=== PATIENT | female | born 1985 | race African-American/Black ===

== ENCOUNTER 2024-06-11 04:40 | Emergency (ER) | payer OTHER, SELFPAY ==
[2024-06-11 04:41] VITALS: BP 116/80
[2024-06-11] MEDS: REMERON 7.5 MG PO (05:09)
--- NOTE | 2024-06-11 05:52 | ED.GENMED ---
History of Present Illness
<DO Stormy Peoples Last Filed: 06/11/24 06:49>
General
Chief Complaint: Anxiety
Source: patient and ambulance crew
Exam Limitations: clinical condition
Time Seen by Provider: 06/11/24 04:43
History of Present Illness
History of Present Illness:
38-year-old female presents stating she is having a panic attack. She reports she is 12 weeks . Patient states that she typically takes mirtazapine when this happens but she did not have any. She was at work. She presents with persistent
nausea and dry heaves. She states is from her anxiety. No abdominal pain or fevers. She reports allergies to Reglan and Zofran. She also has allergies to Compazine and Phenergan. She has had this many times in the past she reports. Patient is
loudly dry heaving and yelling on arrival. She denies drug use. She denies alcohol use.
Past History
<DO Stormy Peoples Last Filed: 06/11/24 06:49>
Past History
ED Past Medical History: Other (Anxiety, panic disorder)
Social History
Drug: None
Phy Exam
<DO Stormy Peoples Last Filed: 06/11/24 06:49>
Physical Exam
Physical Exam:
CONSTITUTIONAL Patient alert and oriented to person, place and time. Patient yelling and loudly dry heaving. Taking her close off during exam. Vital signs reviewed.
HEAD atraumatic, normocephalic.
EYES eyelids normal to inspection, Pupils equally round and reactive to light, Extraocular muscles intact, Conjunctiva normal, Sclera normal.
NECK normal range of motion, Trachea midline, no jugular venous distention.
RESPIRATORY CHEST No respiratory distress noted, Chest expansion equal,
ABDOMEN abdomen nontender, Bowel sounds normal. No distention.
BACK normal inspection, no obvious deformities
UPPER EXTREMITY range of motion normal, Motor strength normal, no cyanosis, no edema.
LOWER EXTREMITY range of motion normal, Motor strength normal, no cyanosis, no edema.
NEURO Speech normal, No focal motor deficits, [place] coma scale 15, Memory normal, Cranial Nerves intact to screening exam.
SKIN skin warm, dry, and normal in color.
PSYCHIATRIC patient oriented to person place and time, extremely anxious and yelling.
Course
<Gilberto Anderson, DO - Last Filed: 06/11/24 06:49>
Orders/Labs/Results
Orders:
Orders
06/11/24 05:04
Mirtazapine [Remeron] 7.5 mg PO NOW STA
06/11/24 05:13
Mirtazapine Odt [Remeron Odt] 7.5 mg PO NOW STA
06/11/24 05:48
0.9% Sodium Chloride 1000 ml [Nss] 1,000 ml IV BOLUS
06/11/24 05:49
Lorazepam [Ativan] 2 mg .ROUTE .STK-MED ONE
06/11/24 05:50
Lorazepam [Ativan] 1 mg IV NOW STA
06/11/24 06:07
Lorazepam [Ativan] 1 mg IV NOW STA
06/11/24 06:30
Test Result ONCE
06/11/24 08:28
Trimethobenzamide [Tigan] 200 mg IM NOW STA
06/11/24 11:02
Lorazepam [Ativan] 1 mg IV NOW STA
06/11/24 11:51
PSYCHIATRY CONSULT Urgent
Consulting Provider: Aidan Cano
Was physician already notified: Yes
Reason for consult: anxiety
06/11/24 11:58
Test Result ONCE
06/11/24 12:03
Basic Metabolic Panel Urgent
Beta HCG Quantitative Urgent
Complete Blood Count/With Diff Urgent
06/11/24 12:06
Fentanyl, Urine Urgent
Urinalysis Reflex To Culture Urgent
Date Specimen was Collected: 06/11/24
Time Specimen was Collected: 12:03
Urine Drug Abuse Screen Urgent
Date Specimen was Collected: 06/11/24
Time Specimen was Collected: 12:03
Urine Microscopic Reflex Cult Urgent
06/11/24 12:50
Mirtazapine Odt [Remeron Odt] 7.5 mg PO NOW STA
Abnormal Lab Results
06/11/24 06/11/24
12:03 12:06
WBC 15.2 H 10^3/uL
(4.8-10.8)
RBC 3.99 L 10^6/uL
(4.20-5.40)
Hgb 11.7 L g/dL
(12.0-16.0)
Hct 33.4 L %
(37.0-47.0)
Abs Immat Gran (auto) 0.1 H 10^3/uL
(0-0.05)
Absolute Neuts (auto) 13.7 H 10^3/uL
(1.4-6.5)
Neutrophils % 90.0 H %
(42.2-75.2)
Lymphocytes % 7.7 L %
(20.5-51.1)
Monocytes % 1.6 L %
(1.7-9.3)
Chloride 109 H mmol/L
(98-107)
Carbon Dioxide 19 L mmol/L
(22-30)
Creatinine 0.4 L mg/dL
(0.6-1.0)
Glucose 145 H mg/dl
(70-99)
Urine Ketones 3+ A
(Negative)
Ur Occult Blood Reflex 2+ A
(Negative)
Leukocyte Esterase Rfl Trace A
(Negative)
Urine Bacteria (Reflex) Few A
(Negative)
Urine Albumin (Reflex) 2+ A
(Neg - Trace)
Ur Amphetamines Screen Positive H
(Negative)
U Methamphetamines Scrn Positive H
(Negative)
U Benzodiazepines Scrn Positive H
(Negative)
U Marijuana (THC) Screen Positive H
(Negative)
06/11/24 12:03
06/11/24 12:03
Vital Signs
Initial and Last Documented VS:
Initial Vital Signs
Temp Pulse Resp BP Pulse Ox
98.6 F 99 34 116/80 97
06/11/24 04:41 06/11/24 04:41 06/11/24 04:41 06/11/24 04:41 06/11/24 04:41
Last Documented Vital Signs
Temp Pulse Resp BP Pulse Ox
98.6 F 100 22 139/89 99
06/11/24 04:41 06/11/24 12:59 06/11/24 12:59 06/11/24 12:59 06/11/24 12:59
<Figueroa Quarles MD - Last Filed: 06/11/24 17:30>
Orders/Labs/Results
Orders:
Orders
06/11/24 05:04
Mirtazapine [Remeron] 7.5 mg PO NOW STA
06/11/24 05:13
Mirtazapine Odt [Remeron Odt] 7.5 mg PO NOW STA
06/11/24 05:48
0.9% Sodium Chloride 1000 ml [Nss] 1,000 ml IV BOLUS
06/11/24 05:49
Lorazepam [Ativan] 2 mg .ROUTE .STK-MED ONE
06/11/24 05:50
Lorazepam [Ativan] 1 mg IV NOW STA
06/11/24 06:07
Lorazepam [Ativan] 1 mg IV NOW STA
06/11/24 06:30
Test Result ONCE
06/11/24 08:28
Trimethobenzamide [Tigan] 200 mg IM NOW STA
06/11/24 11:02
Lorazepam [Ativan] 1 mg IV NOW STA
06/11/24 11:51
PSYCHIATRY CONSULT Urgent
Consulting Provider: Aidan Cano
Was physician already notified: Yes
Reason for consult: anxiety
06/11/24 11:58
Test Result ONCE
06/11/24 12:03
Basic Metabolic Panel Urgent
Beta HCG Quantitative Urgent
Complete Blood Count/With Diff Urgent
06/11/24 12:06
Fentanyl, Urine Urgent
Urinalysis Reflex To Culture Urgent
Date Specimen was Collected: 06/11/24
Time Specimen was Collected: 12:03
Urine Drug Abuse Screen Urgent
Date Specimen was Collected: 06/11/24
Time Specimen was Collected: 12:03
Urine Microscopic Reflex Cult Urgent
06/11/24 12:50
Mirtazapine Odt [Remeron Odt] 7.5 mg PO NOW STA
Abnormal Lab Results
06/11/24 06/11/24
12:03 12:06
WBC 15.2 H 10^3/uL
(4.8-10.8)
RBC 3.99 L 10^6/uL
(4.20-5.40)
Hgb 11.7 L g/dL
(12.0-16.0)
Hct 33.4 L %
(37.0-47.0)
Abs Immat Gran (auto) 0.1 H 10^3/uL
(0-0.05)
Absolute Neuts (auto) 13.7 H 10^3/uL
(1.4-6.5)
Neutrophils % 90.0 H %
(42.2-75.2)
Lymphocytes % 7.7 L %
(20.5-51.1)
Monocytes % 1.6 L %
(1.7-9.3)
Chloride 109 H mmol/L
(98-107)
Carbon Dioxide 19 L mmol/L
(22-30)
Creatinine 0.4 L mg/dL
(0.6-1.0)
Glucose 145 H mg/dl
(70-99)
Urine Ketones 3+ A
(Negative)
Ur Occult Blood Reflex 2+ A
(Negative)
Leukocyte Esterase Rfl Trace A
(Negative)
Urine Bacteria (Reflex) Few A
(Negative)
Urine Albumin (Reflex) 2+ A
(Neg - Trace)
Ur Amphetamines Screen Positive H
(Negative)
U Methamphetamines Scrn Positive H
(Negative)
U Benzodiazepines Scrn Positive H
(Negative)
U Marijuana (THC) Screen Positive H
(Negative)
06/11/24 12:03
06/11/24 12:03
Vital Signs
Initial and Last Documented VS:
Initial Vital Signs
Temp Pulse Resp BP Pulse Ox
98.6 F 99 34 116/80 97
06/11/24 04:41 06/11/24 04:41 06/11/24 04:41 06/11/24 04:41 06/11/24 04:41
Last Documented Vital Signs
Temp Pulse Resp BP Pulse Ox
98.6 F 100 22 139/89 99
06/11/24 04:41 06/11/24 12:59 06/11/24 12:59 06/11/24 12:59 06/11/24 12:59
<Gilberto Anderson DO - Last Filed: 06/11/24 06:49>
MDM/Problems Addressed
MDM/Problems Addressed:
Intractable nausea and dry, anxiety
<Gilberto Anderson DO - Last Filed: 07/27/24 06:49>
*Pulse Oximetry
Patient hypoxic: no
*Critical Care Note
Total Time (30-74mins, 75-104mins- exclusive of procedures): Not Applicable
Data Reviewed
Source: patient and ambulance crew
Prescriptions/Medications Considered But Not Given:
Considered Compazine and Benadryl with patient reports severe allergy
<Gilberto Anderson DO - Last Filed: 06/11/24 06:49>
Update Note
Update Note:
very odd and bizarre behavior as patient is getting undressed and naked in the room. Writhing around in the room.
0649 patient is settling down a bit. Patient is very adamant that this is all related to her anxiety. Signed out to Dr. Quarles pending reassessment
<Figueroa Quarles MD - Last Filed: 06/11/24 17:30>
Update Note
Update Note:
very odd and bizarre behavior as patient is getting undressed and naked in the room. Writhing around in the room.
0649 patient is settling down a bit. Patient is very adamant that this is all related to her anxiety. Signed out to Dr. Quarles pending reassessment
As patient continued to exhibiting erratic behavior with inappropriate behavior, patient evaluated by (psychiatry) - does not feel that pt is in need of any acute in-patient psychiatric tx, despite her behavior and pt is appropriately
answering questions without any suicidal thoughts. Recommends symptomatic tx with one additional dose of ativan as well as Remeron ODT.
Pt's father arrived in ED and shared that he himself has noticed patient exhibiting same behavior on number of occassions. Pt requires a few days of rest at home and is usually right back to her normal self, including returning back to work. As
such, father feels comfortable taking patient home at this time, where she will be observed carefully. Discussed following up with psychiatrist/therapist as an outpatient,especially in light of multiple similar episodes. In addition, recommended
contacting her founding partner physician for re-evaluation, as patient has number of medications in ED.
ED Attending Note
<Gilberto Anderson DO - Last Filed: 06/11/24 06:49>
-
Portions of this chart may have been created with voice recognition software.� Occasional wrong word or��sound alike� substitutions may have occurred due to the inherent limitations of voice recognition software.
Discharge Plan
Departure
Patient Disposition: Home (Routine Discharge)
Date of Disposition: 06/11/24
Time of Disposition: 12:46
Patient with high blood pressure during this ER visit?: Yes
Condition: Good
Discharge Problem:
Anxiety
Instructions: Anxiety, Adult (DC)
Prescriptions:
No Action
nifedipine 30 mg Tablet Extended Release
30 mg PO DAILY
Vitamin Tablet
1 tab PO DAILY
Referrals:
PRIVATE,PHYSICIAN [Family Provider] -
Activity Restrictions/Additional Instructions:
As discussed, please follow-up with your primary care physician and/or therapist for further evaluation and treatment. In addition, in light of multiple medications given in ED with your ongoing symptoms, also recommend close follow-up with your
MEDICAL UNDERWRITER physician.
Interventions
Interventions:
*Risk Screen - Suicide Last Done: 06/11/24 04:41
*General Assessment Last Done: 06/11/24 04:41
*Neglect/Abuse Screening Last Done: 06/11/24 04:41
ED- Fall Risk Assessment Last Done: 06/11/24 12:59
*ED COVID-19 Vaccine History Last Done: 06/11/24 04:52
*Nursing Disposition Last Done: 06/11/24 12:59
ED-Psychological Assessment Last Done: 06/11/24 09:16
Discharge Date and Time
Discharge Date/Time: 06/11/24 13:00
Print Language: ITALIAN
[2024-06-11] MEDS: ATIVAN 1 MG IV ×3 (06:33→12:32)
[2024-06-11] MEDS: NSS 1000 IV (06:42)
[2024-06-11 06:43] VITALS: BP 135/79
--- NOTE | 2024-06-11 08:28 | ED TECH ---
Pt continues to yell for her nurse. Pt is trying to take off gown and walk around the room, loudly retching, dry heaving, and yelling for apple juice. when told that she cannot have apple juice because she is vomiting, pt states 'i'm not vomiting
anymore'.
[2024-06-11] MEDS: TIGAN 200 MG IM (08:46)
[2024-06-11 12:16] LABS: % Basophils 0.3 % (0-2); % Immature Granulocytes 0.4 % (0-0.5); % Lymphocytes 7.7 % (20.5-51.1); % Monocytes 1.6 % (1.7-9.3); Absolute Immature Granulocytes 0.1 10^3/uL (0-0.05); Absolute Lymphocytes 1.2 10^3/uL (1.2-3.4); Absolute Monocytes 0.3 10^3/uL (0.1-0.6); Absolute Neutrophils 13.7 10^3/uL (1.4-6.5); Hematocrit 33.4 % (37.0-47.0); Hemoglobin 11.7 g/dL (12.0-16.0); Mean Corpuscular Hgb 29.3 pg (27.0-31.0); Mean Corpuscular Volume 83.7 fL (81.0-99.0); Mean Platelet Volume 9.6 fL (7.4-10.4); Nucleated Red Blood Cells % 0 %; Platelet Count 282 10^3/uL (130-400); Red Blood Cell Count 3.99 10^6/uL (4.20-5.40); Red Cell Dist. Width 12.7 % (11.5-14.5); White Blood Cell Count 15.2 10^3/uL (4.8-10.8)
--- NOTE | 2024-06-11 12:19 | CON.MD ---
Consultation - Medical
-
38 y/o woman reports she is 12 weeks 5 days and gets care and psychiatric care through (?) [facility] and [facility] (later denies that she is actively in treatment there now). She has a history of panic attacks. Went to
work as a home health aide, had anxiety and vomiting and came to the hospital by ambulance just after midnight. Has complained of being hot and took off clothing and walked around the room, has been agitated and uncooperative and acting bizarre.
Has had dry heaves and vomited the apple juice she requested she she insists helps her. When I saw her, she required several staff to attempt a blood draw and insertion of an IV. Was demanding of her juice complaining of thirst. She then spit up
phlegm and the vomited. Behavior was odd going from agitated and antagonistic, to chanting and unresponsive, to being more cooperative with questioning and then closing her eyes. Used marijuana a few days ago. Denies any other drugs.
Reports she always has vomiting with pregnancies, has several children at home. Reports that only Remeron (mirtazapine) which she takes only as needed helps her anxiety and has antiemetic effects. Has been given IV Ativan and two doses of
mirtazapine early today.
PH: One psychiatric hospitalization for anxiety at [facility] which was not a good experience. Unclear if she has been treated with SSRI's or SNRI's. Denies she has ever been suicidal.
FH: Said there is a family history of mental illness, but would not give details.
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 No other information available. Lives with the father of her baby who is generally a good man. Reports she does have a past history of drug use, but denies being on Suboxone now.
MSE: Short, overweight woman with multiple tattoos agitated but oriented. Speech at times is fluent and well-articulated, other times trance-like chanting or shut down. Seems to be of average intelligence. Denies any suicidal ideation. No
evidence of hallucinations or delusions.
Impression: Panic Disorder
Gravid woman , reports 12 weeks 5 days gestation
R/O Hyperemesis Hyperemesis gravidarum
R/O Cannabinoid hyperemesis syndrome
Plan: Symptomatic treatment of anxiety, nausea and vomiting. Labs are pending to rule out metabolic disorder. Mirtazapine is apparently quite safe during and should produce calming and antiemetic effects. Maximum daily approved dose is
45 mg.
Strongly advised against any cannabis use during . To see her Mental Health provider as soon as possible.
Father came to ED. said she has episodes like this and gets better with a few days of rest at home.
Labs: WBC 15.2 with ANC 13.7. (attributed to by Dr. Quarles) HCG and drug screens pending.
Is being discharged to father.
[2024-06-11 12:35] LABS: Urine Albumin 2+ (Neg - Trace); Urine Bilirubin Negative (Negative); Urine Character Clear (Clear); Urine Color Yellow; Urine Glucose Negative (Negative); Urine Ketone 3+ (Negative); Urine Leukocyte Trace (Negative); Urine Nitrite Negative (Negative); Urine Occult Blood 2+ (Negative); Urine Specific Gravity 1.025 (<1.030); Urine Urobilinogen Negative (Neg - 1+)
[2024-06-11 12:36] LABS: Blood Urea Nitrogen 8 mg/dl (7-17); Calcium 9.7 mg/dl (8.4-10.2); Carbon Dioxide 19 mmol/L (22-30); Chloride 109 mmol/L (98-107); Estimated Creatinine Clearance 97 ml/min; Glucose 145 mg/dl (70-99); Sodium 138 mmol/L (135-145); eGFR > 60.00
[2024-06-11 12:47] LABS: Urine Mucus Many; Urine Squamous Cell 0-2 /LPF (Few)
[2024-06-11 12:49] LABS: Urine Bacteria Few (Negative); Urine Red Blood Cell 0-2 /HPF (0-2); Urine Trichomonas Few
[2024-06-11 12:59] VITALS: BP 139/89
[2024-06-11 13:16] LABS: Amphetamines Positive (Negative); Barbiturates Negative (Negative); Benzodiazepines Positive (Negative); Buprenorphine Negative (Negative); Cocaine Negative (Negative); Marijuana Positive (Negative); Methadone Negative (Negative); Methamphetamines Positive (Negative); Opiates Negative (Negative); Phencyclidine Negative (Negative); Tricyclic Antidepressants Negative (Negative)
[2024-06-11 13:54] LABS: Fentanyl, Urine Negative (Negative)
--- NOTE | 2024-06-12 16:56 | CM ---
[place] was updated by Dr. Cano that patient's urine drug screen was positive for methamphetamines. Dr. Cano wanted [place] to follow up with patient for additional services. CM reviewed chart. There were no phone numbers documented for patient.
== END 2024-06-11 13:00 | disposition home or self-care (01) ==
LOC: EMR 04:40
PROVIDERS: Emergency Medicine; CONSULT PHYSICIAN Psychiatry & Neurology Psychiatry; EMERGENCY PHYSICIAN Emergency Medicine
DX: O99.341 Other mental disorders complicating pregnancy, first trimester (principal); Z3A.12 12 weeks gestation of pregnancy; O21.9 Vomiting of pregnancy, unspecified; R45.1 Restlessness and agitation; F41.9 Anxiety disorder, unspecified; F41.0 Panic disorder [episodic paroxysmal anxiety]; O99.321 Drug use complicating pregnancy, first trimester; F12.90 Cannabis use, unspecified, uncomplicated; Z88.8 Allergy status to other drugs, medicaments and biological substances
CPT/HCPCS: 99284; 96374; 96376; 96372; 80048; 80306; 80307; 81003; 81015; 84702; 85025